=== PATIENT | male | born 1940 | race Caucasian/White ===

== ENCOUNTER 2018-04-09 12:17 | Emergency (ER) | payer MEDICARE, OTHER ==
[2018-04-09] MEDS ORDERED: Ketorolac 15 MG/ML SDV IVPUSH ONE (12:29)
--- NOTE | 2018-04-09 12:42 | EDM.PDOC ---
ED HPI GENERAL MEDICAL PROBLEM - General Stated Complaint: CHEST PAIN Time Seen by Provider: 04/09/18 12:17 Source of Information: Reports: Patient History Limitations: Reports: No Limitations - History of Present Illness INITIAL COMMENTS - FREE TEXT/NARRATIVE: Patient comes into the emergency department today with the complaint of chest discomfort. States that it started around 8 AM. He has noticed it has been hurting on and off for the last couple days. He was painting his entire bathroom and noticed a that he was a little tender and sore the following morning didn't think much of it however this morning after he woke up and started trying to get out of bed he had severe discomfort in his chest midsternal area especially when he takes a deep breath. When he rests it does get better however does not completely go away. When he did try to sit down when entering the emergency department had sharp shooting pain that went from his front of his chest radiating all the way to the back. He said that he wanted to be checked out to ensure that it is not cardiac related. Denies any shortness of breath, dizziness, lightheaded, nausea, or vomiting. Onset: Gradual Middle Chest Pain Score (Numeric/FACES): 6 - Related Data Allergies Allergy/AdvReac Type Severity Reaction Status Date / Time No Known Allergies Allergy Verified 04/09/18 12:57 Home Meds: Home Meds Azithromycin [IJP: Azithromycin] 250 mg PO DAILY 2 Days #2 tab 04/09/18 [Rx] ED ROS GENERAL - Review of Systems Review Of Systems: See Below Constitutional: Reports: No Symptoms HEENT: Reports: No Symptoms Respiratory: Reports: No Symptoms Cardiovascular: Reports: No Symptoms, Chest Pain (hurts to take a deep breath ) Endocrine: Reports: No Symptoms GI/Abdominal: Reports: No Symptoms Musculoskeletal: Reports: Back Pain Skin: Reports: No Symptoms Neurological: Reports: No Symptoms Psychiatric: Reports: No Symptoms ED EXAM, GENERAL - Physical Exam Exam: See Below Exam Limited By: No Limitations General Appearance: Alert, WD/WN, No Apparent Distress Respiratory/Chest: No Respiratory Distress, Lungs Clear, Normal Breath Sounds, No Accessory Muscle Use, Chest Non-Tender Cardiovascular: Normal Peripheral Pulses, Regular Rate, Rhythm, No Edema, No JVD , No Murmur, No Rub Extremities: Normal Inspection, Normal Range of Motion, Non-Tender, Normal Capillary Refill, Other (chest discomfort when lifting arms over head or reaching hands behind back ) Neurological: Alert, Oriented, CN II-XII Intact, Normal Cognition, Normal Gait Psychiatric: Normal Affect, Normal Mood Skin Exam: Warm, Dry, Intact, Normal Color Course - Vital Signs Last Recorded V/S: Last Vital Signs Temp 36.4 C 04/09/18 12:18 Pulse 74 04/09/18 12:18 Resp 16 04/09/18 12:18 BP 151/100 H 04/09/18 12:18 Pulse Ox 95 04/09/18 12:18 - Orders/Labs/Meds Orders: Active Orders 24 hr Category Date Time Status EKG Documentation Completion [RC] URGENT Care 04/09/18 12:56 Active Chest 1V Frontal [CR] Stat Exams 04/09/18 12:27 Taken COMPREHENSIVE METABOLIC PN,CMP [CHEM] Stat Lab 04/09/18 12:49 Received CREATINE KINASE,CK [CHEM] Stat Lab 04/09/18 12:49 Received Sodium Chloride 0.9% [Saline Flush] Med 04/09/18 12:57 Active 10 ml FLUSH ASDIRECTED PRN Peripheral IV Insertion Adult [OM.PC] Stat Oth 04/09/18 12:57 Ordered Medication Orders Sodium Chloride (Saline Flush) 10 ml FLUSH ASDIRECTED PRN PRN Reason: Keep Vein Open Labs: Laboratory Tests 04/09/18 04/09/18 Range/Units 12:49 12:51 WBC 10.8 H (4.0-10.0) x10^3/uL RBC 4.13 L (4.5-6.0) x10^6/uL Hgb 12.9 L (14.0-18.0) g/dL Hct 38.6 L (40.0-52.0) % MCV 93.5 H (78.0-93.0) fL MCH 31.2 (26.0-32.0) pg MCHC 33.4 (32.0-36.0) g/dL RDW Coeff of Kriss 13.0 (10.0-15.0) % Plt Count 193 (130-400) x10^3/uL Neut % (Auto) 68.5 (50.0-80.0) % Lymph % (Auto) 16.3 L (25.0-50.0) % [place] % (Auto) 12.8 H (2.0-11.0) % Eos % (Auto) 2.0 (0.0-4.0) % Baso % (Auto) 0.4 (0.2-1.2) % POC Troponin I 0.00 (0.00-0.08) ng/mL Meds: Medications Generic Name Dose Route Start Last Admin Trade Name Freq PRN Reason Stop Dose Admin Sodium Chloride 10 ml 04/09/18 12:57 Saline Flush FLUSH ASDIRECTED PRN Keep Vein Open Discontinued Medications Generic Name Dose Route Start Last Admin Trade Name Freq PRN Reason Stop Dose Admin Ketorolac Tromethamine 15 mg 04/09/18 12:29 04/09/18 12:41 Toradol IVPUSH 04/09/18 12:30 15 mg ONETIME ONE Administration Departure - Departure Time of Disposition: 13:40 Disposition: Home, Self-Care 01 Condition: Good Clinical Impression: Costochondritis, acute Pneumonia Qualifiers: Pneumonia type: due to unspecified organism Laterality: right Lung location: lower lobe of lung Qualified Code(s): J18.1 - Lobar pneumonia, unspecified organism Instructions: Community-Acquired Pneumonia, Adult, Costochondritis, Easy-to- Read, Azithromycin tablets Referrals: PCP,Not In Area [Primary Care Provider] - Additional Instructions: 1. Take antibiotic as prescribed 2. Increase her water intake 3. Can take ibuprofen or Tylenol for pain and discomfort 4. Alternate between ice and heat to help with any discomfort 5. Reduce physical activity over the course of next to 3 days to allow proper healing 6. Follow-up with PCP in O week if not feeling better 7. Activity and diet as tolerated - My Orders Last 24 Hours: My Active Orders 04/09/18 12:27 Chest 1V Frontal [CR] Stat 04/09/18 12:49 COMPREHENSIVE METABOLIC PN,CMP [CHEM] Stat CREATINE KINASE,CK [CHEM] Stat 04/09/18 12:56 EKG Documentation Completion [RC] URGENT 04/09/18 12:57 Sodium Chloride 0.9% [Saline Flush] 10 ml FLUSH ASDIRECTED PRN Peripheral IV Insertion Adult [OM.PC] Stat - Assessment/Plan Last 24 Hours: My Active Orders 04/09/18 12:27 Chest 1V Frontal [CR] Stat 04/09/18 12:49 COMPREHENSIVE METABOLIC PN,CMP [CHEM] Stat CREATINE KINASE,CK [CHEM] Stat 04/09/18 12:56 EKG Documentation Completion [RC] URGENT 04/09/18 12:57 Sodium Chloride 0.9% [Saline Flush] 10 ml FLUSH ASDIRECTED PRN Peripheral IV Insertion Adult [OM.PC] Stat Assessment:: 1. chest pain 2. Chest wall pain Plan: 1. EKG completed an ER. Interpretation reviewed with patient 2. Labs completed in the ER and reviewed with the patient 3. Chest x-ray completed in the ER and reviewed with patient 4. Toradol administered as an anti-inflammatory to help with the musculoskeletal discomfort
[2018-04-09] MEDS ORDERED: Sodium Chloride 0.9% 10 ML Syringe FLUSH PRN (12:57)
[2018-04-09 13:15] LABS: CHLORIDE,CL 105 mmol/L (98-107); SODIUM,NA 142 mmol/L (136-145)
[2018-04-09] MEDS ORDERED: Take Home: Azithromycin 250 MG, 2 Tab Pack PO ONE (13:24)
[2018-04-09] MEDS ORDERED: Azithromycin 250 MG Tab PO ONE (13:25)
== END 2018-04-09 14:00 | disposition home or self-care (01) ==
LOC: VM.ED 12:17
DX: J18.9 Pneumonia, unspecified organism (principal); M94.0 Chondrocostal junction syndrome [Tietze]
CPT/HCPCS: 36415; 71045; 80053; 82550; 84484; 85025; 93005; 93010; 96374; 99284-GF; 99285; A9270-GY; J1885